=== PATIENT | female | born 1995 | race Caucasian/White ===

== ENCOUNTER 2019-07-17 17:40 | Inpatient (IN) | payer BC, MEDICAID ==
[~2019-07-17] VITALS: Ht 152.4 cm; Wt 64.4 kg
[2019-07-17 17:47] VITALS: BP 129/82
--- NOTE | 2019-07-17 18:16 | NUR ---
Pt taken to bed 12.
--- NOTE | 2019-07-17 18:37 | NUR ---
PT PRESENTS TO ED FRO EVALUATION OF ABDOMINAL PAIN X 2 DAYS. STATED PAIN WHEN URUNATES. PT AAO X4, GCS 15, AMBULATORY WITH STEADY GAIT. RESPIRATIONS EVEN AND UNLABORED, BL LUNG CLEAR. SKIN WARM/PINK/DRY, +PMSC. ABDOMEN SOFT, NON DISTENDED, ATCIVE BOWEL SOUND X4. VS WNL. ED PROVIDER MADE AWARE OF PT STATUS, WILL CONTINUE TO MONITOR
--- NOTE | 2019-07-17 19:15 | NUR ---
RECEIVED REPORT FROM JACKIE MIX. ASSUMED CARE AT THIS TIME.
[2019-07-17 19:49] LABS: APPEARANCE,URINE CLEAR (CLEAR); BILIRUBIN,URINE NEGATIVE (NEGATIVE); BLOOD, URINE 2+ (NEGATIVE); COLOR,URINE YELLOW (YELLOW); LEUKOCYTE ESTERASE ,URINE NEGATIVE (NEGATIVE); NITRITE, URINE NEGATIVE (NEGATIVE); PH,URINE 7.5 (5.0-9.0); UGLUCOSE NEGATIVE (NEGATIVE)
[2019-07-17] MEDS ORDERED: cefTRIAXone 1,000 MG in LIDOCAINE MPF 1% 2.1 ML IM ONE (20:00)
[2019-07-17 20:01] LABS: RBC,URINE NONE SEEN /HPF (0-5); WBC,URINE NONE SEEN /HPF (0-5)
--- NOTE | 2019-07-17 20:15 | NUR ---
PT C/O 01/21 PAIN. AARON MAYBERRY NOTIFIED.
[2019-07-17] MEDS ORDERED: MORPHINE SULFATE 4 MG/ML SYR IVP ONE (20:40)
[2019-07-17] MEDS ORDERED: NACL 0.9% 1,000 ML IV ONE (20:40)
[2019-07-17] MEDS ORDERED: PIPERACILLIN/TAZOBACTAM 2.25 GM in DEXTROSE 5% 50 ML IV ONE (20:40)
[2019-07-17 20:56] LABS: BASOPHILS % (AUTO) 0.2 % (0.0-2.0); EOSINOPHILS # (AUTO) 0.1 K/uL (0-0.4); EOSINOPHILS % (AUTO) 0.8 % (0.0-4.0); HEMATOCRIT 40.4 % (36-48); HEMOGLOBIN 13.1 g/dL (12.0-16.0); LYMPHOCYTES # (AUTO) 1.6 K/uL (2.5-16.5); LYMPHOCYTES % (AUTO) 13.7 % (20.5-51.1); MEAN CORPUSCULAR HEMOGLOBIN 31 pg (27-31); MEAN CORPUSCULAR HGB CONC 32 g/dL (33-37); MEAN CORPUSCULAR VOLUME 95.9 fL (80-94); MONOCYTES % (AUTO) 8.1 % (1.7-9.3); NEUTROPHILS # (AUTO) 9.1 K/uL (1.8-7.7); NEUTROPHILS % (AUTO) 77.2 % (42.2-75.2); PLATELET COUNT (AUTO) 239 K/uL (140-450); RED BLOOD CELL COUNT(AUTO) 4.21 MIL/uL (4.20-5.40); RED CELL DISTRIBUTION WIDTH 13.9 % (11.6-13.7); WHITE BLOOD COUNT (AUTO) 11.8 K/uL (4.8-10.8)
[2019-07-17] MEDS ORDERED: PIPERACILLIN/TAZOBACTAM 2.25 GM VIAL IV ONE (21:00)
[2019-07-17 21:25] LABS: ALBUMIN 3.7 g/dL (3.4-5.0); POTASSIUM 3.9 mmol/L (3.5-5.1); TOTAL BILIRUBIN 0.6 mg/dL (0.0-1.0)
--- NOTE | 2019-07-17 21:30 | NUR ---
PT REPORTS DECREASED PAIN AT THIS TIME.
[2019-07-17 21:38] LABS: CREATININE 0.9 mg/dL (0.6-1.3)
[2019-07-17 21:41] LABS: ANION GAP 11.9 (8-16)
[2019-07-17 22:29] VITALS: BP 120/68
--- NOTE | 2019-07-17 22:29 | NUR ---
RECEIVED FROM ED VIA WHEELCHAIR, PT AMBULATED TO THE BED, STEADY IN GAIT. AAO X 4. WITH IV ON THE RIGHT AC G 20, INTACT. MOTHER AT BEDSIDE. MRSA SWAB TAKEN. HX AND PHYSICAL DONE. SKIN INTACT. WILL MONITOR PT.
[2019-07-17] MEDS ORDERED: ONDANSETRON 4 MG/2 ML VIAL IVP PRN (23:45)
--- NOTE | 2019-07-18 | NUR ---
called er talked to shaye informed her to inform the one who admitted to come and sign the personnel belonging list. it was not signed and personally informed her during endorsement
--- NOTE | 2019-07-18 | NUR ---
DR. CLARK CALLED THRU [facility] AND TAKLED TO HIM HE WANTS TO DO THE SURGERY AT 0700 AM. [employer]
[2019-07-18 00:13] LABS: PROTHROMBIN TIME 9.6 secs (10.8-13.4)
--- NOTE | 2019-07-18 00:14 | NUR ---
INFORMED MOTHER VERNECE, THAT DR. GÓMEZ WILL BE HERE AND WILL DO THE OPERATION 0700AM AND WILL BE THERE BEFORE THAT TIME
[2019-07-18] MEDS ORDERED: PIPERACILLIN/TAZOBACTAM 3.375 GM VIAL IV ONE ×2 (00:38→04:52)
[2019-07-18] MEDS: DEXT 5% /NACL 0.9% 1,000 ML IV SCH ×2 (00:53→09:31)
[2019-07-18] MEDS: MORPHINE SULFATE 2 MG/ML SYR IVP PRN ×3 (00:55→22:15)
[2019-07-18] MEDS ORDERED: PIPERACILLIN/TAZOBACTAM 3.375 GM in DEXTROSE 5% 50 ML IV SCH (01:00)
[2019-07-18 04:00] VITALS: BP 124/56
[2019-07-18 05:10] LABS: ANION GAP 11.3 (8-16); CARBON DIOXIDE 27.4 mmol/L (21-32); CREATININE 0.9 mg/dL (0.6-1.3); POTASSIUM 3.7 mmol/L (3.5-5.1)
[2019-07-18 05:28] LABS: BASOPHILS % (AUTO) 0.3 % (0.0-2.0); EOSINOPHILS % (AUTO) 0.4 % (0.0-4.0); HEMATOCRIT 38.1 % (36-48); HEMOGLOBIN 12.5 g/dL (12.0-16.0); LYMPHOCYTES # (AUTO) 0.8 K/uL (2.5-16.5); LYMPHOCYTES % (AUTO) 6.9 % (20.5-51.1); MEAN CORPUSCULAR HEMOGLOBIN 31 pg (27-31); MEAN CORPUSCULAR HGB CONC 33 g/dL (33-37); MEAN CORPUSCULAR VOLUME 95.4 fL (80-94); MONOCYTES # (AUTO) 0.9 K/uL (0.8-1.0); MONOCYTES % (AUTO) 7.7 % (1.7-9.3); NEUTROPHILS # (AUTO) 9.8 K/uL (1.8-7.7); PLATELET COUNT (AUTO) 217 K/uL (140-450); RED CELL DISTRIBUTION WIDTH 13.8 % (11.6-13.7); WHITE BLOOD COUNT (AUTO) 11.6 K/uL (4.8-10.8)
[2019-07-18 05:36] LABS: NEUTROPHILS % (AUTO) 84.7 % (42.2-75.2)
[2019-07-18] MEDS ORDERED: PIPER/TAZO 3.375GM/D5W PREMIX 50 ML IV SCH (06:00)
--- NOTE | 2019-07-18 06:30 | NUR ---
DR. GÓMEZ AT BEDSIDE. EXPLAINED PROCEDURE TO PATIENT AND MOM AT BEDSIDE. CONSENT SIGNED BY PATIENT. SIGNED CONSENT WELL
--- NOTE | 2019-07-18 06:49 | NUR ---
WHEELED FROM THE TELE UNIT TO OR VIA GURNEY BY OR NURSE.ENDORSED.
[2019-07-18] MEDS ORDERED: BUPIVACAINE-MPF/EPI 0.25% 30 ML VIAL INJ ONE (06:57)
[2019-07-18] MEDS ORDERED: KETOROLAC 30 MG/ML VIAL ONE (07:09)
[2019-07-18] MEDS ORDERED: ONDANSETRON 4 MG/2 ML VIAL ONE (07:09)
[2019-07-18] MEDS ORDERED: DEXAMETHASONE 4 MG/ML VIAL ONE (07:09)
[2019-07-18] MEDS ORDERED: fentaNYL 0.05 MG/ML VIAL ONE (07:14)
[2019-07-18] MEDS ORDERED: HYDROmorphone PFS 2 MG/ML SYR ONE (07:14)
--- NOTE | 2019-07-18 07:15 | NUR ---
RECEIVED BEDSIDE REPORT FROM NIGHTSHIFT NURSE. PT RESTING IN BED UPON ARRIVAL. ABLE TO MAKE NEEDS KNOWN. RESPIRATIONS EVEN AND UNLABORED WITH NO SOB OR RESPIRATORY DISTRESS. SKIN WARM AND DRY TO TOUCH. IV SITE IN LEFT AC 20G SALINE LOCK IS CLEAN, DRY, AND INTACT. SAFETY MEASURES IN PLACE. WILL CONTINUE TO MONITOR
[2019-07-18 08:00] VITALS: BP 96/58
--- NOTE | 2019-07-18 08:01 | NUR ---
GAVE REPORT TO OR NURSE. CONSENT IS SIGNED AND PT IS READY FOR OR. PT RESTING IN BED. SKIN WARM AND DRY TO TOUCH. ABLE TO MAKE NEEDS KNOWN. RESPIRATIONS EVEN AND UNLABORED WITH NO SOB OR RESPIRATORY DISTRESS. SAFETY MEASURES IN PLACE. WILL CONTINUE TO MONITOR.
--- NOTE | 2019-07-18 08:46 | NUR ---
PATIENT HAS BEEN SCREENED AND CATEGORIZED LOW NUTRITION RISK. PATIENT WILL BE SEEN WITHIN 7 DAYS OF ADMISSION. 07/24/[address]
--- NOTE | 2019-07-18 09:10 | NUR ---
PT CAME BACK FROM OR. RECEIVED REPORT FROM OR NURSE. PT RESTING IN BED. ABLE TO MAKE NEEDS KNOWN. RESPIRATIONS EVEN AND UNLABORED WITH NO SOB OR RESPIRATORY DISTRESS. SKIN WARM AND DRY TO TOUCH. SAFETY MEASURES IN PLACE. WILL CONTINUE TO MONITOR.
--- NOTE | 2019-07-18 11:51 | NUR ---
DC [age] YRS OLD FEMALE PATIENT WAS ADMITTED FROM HOME WITH A DX OF ACUTE APPENDICITIS . PT HAS NO MEDICAL HISTORY. CT OF ABD SHOWED APPENDICITIS. THE PT WAS EVALUATED BY SURGERY DR GÓMEZ AND HAS SURGERY TODAY .DR GÓMEZ PERFORMED LAP APPY WITH NO COMPLICATIONS. PLAN TO START ON DIET AND TO BE ADVANCED TOLERATED AND WILL BE MONITORED ANOTHER DAY AND MORE LIKELY CAN BE DISCHARGED HOME ON 07/19/19 . CM TO FOLLOW
[2019-07-18 12:00] VITALS: BP 98/64
--- NOTE | 2019-07-18 12:20 | NUR ---
ADMINISTERED MEDICATION PRESCRIBED PER MD ORDER. PT TOLERATED WELL. MEDICATION EDUCATION PERFORMED. PT VERBALIZED UNDERSTANDING. SAFETY MEASURES IN PLACE. WILL CONTINUE TO MONITOR
[2019-07-18] MEDS: PIPERACILLIN/TAZOBACTAM 3.375 GM in DEXTROSE 5% 50 ML IV SCH ×2 (12:33→18:01)
--- NOTE | 2019-07-18 14:15 | NUR ---
HOURLY ROUNDING. PT RESTING IN BED WITH FAMILY AT BEDSIDE. ABLE TO MAKE NEEDS KNOWN. RESPIRATIONS EVEN AND UNLABORED WITH NO SOB OR RESPIRATORY DISTRESS. SKIN WARM AND DRY TO TOUCH. SAFETY MEASURES IN PLACE. WILL CONTINUE TO MONITOR.
[2019-07-18 16:00] VITALS: BP 96/58
--- NOTE | 2019-07-18 16:08 | NUR ---
PT ASLEEP IN BED. RESPONSIVE TO VERBAL AND TACTILE STIMULI. ABLE TO MAKE NEEDS KNOWN. RESPIRATIONS EVEN AND UNLABORED WITH NO SOB OR RESPIRATORY DISTRESS. SKIN WARM AND DRY TO TOUCH. SAFETY MEASURES IN PLACE. WILL CONTINUE TO MONITOR.
[2019-07-18] MEDS: ACETAMINOPHEN 325 MG TAB PO PRN (18:33)
--- NOTE | 2019-07-18 18:33 | NUR ---
PT CALLED AND COMPLAINED OF PAIN. PRN PAIN MEDICATION ADMINISTERED PRESCRIBED PER MD ORDER. PT TOLERATED WELL. MEDICATION EDUCATION PERFORMED. PT VERBALIZED UNDERSTANDING AND COULD TEACH BACK. SAFETY MEASURES IN PLACE. WILL CONTINUE TO MONITOR
--- NOTE | 2019-07-18 19:20 | NUR ---
ENDORSED TO NIGHTSHIFT NURSE. PT RESTING IN BED UPON ARRIVAL. ABLE TO MAKE NEEDS KNOWN. RESPIRATIONS EVEN AND UNLABORED WITH NO SOB OR RESPIRATORY DISTRESS. SKIN WARM AND DRY TO TOUCH. SAFETY MEASURES IN PLACE. PT IS STABLE.
--- NOTE | 2019-07-18 19:25 | NUR ---
RECEIVED PATIENT FROM AM NURSE IN STABLE CONDITION. MED SURG PATIENT. A/O X4, ABLE TO MAKE NEEDS KNOWN. RESPIRATIONS EVEN, UNLABORED. SKIN WARM, DRY TO TOUCH. IV SITE TO LEFT AC 20G INTACT AND PATENT. IV FLUIDS INFUSING WELL. NO C/O PAIN. NO S/SX ACUTE DISTRESS NOTED. ABDOMEN SOFT, NONDISTENDED. 3 INCISION SITES NOTED, 2 RIGOBERTO UNDER UMBILICUS. SITES ARE CLEAN/DRY WITH NO S/SX REDNESS. SCDS IN PLACE. BED IN LOWEST POSITION. SIDE RAILS UP X2. CALL LIGHT WITHIN REACH. WILL CONTINUE TO MONITOR.
--- NOTE | 2019-07-18 20:30 | NUR ---
SCD ON BLE APPLIED. INSTRUCTED TO CALL IF NEED TO GET UP TO BATHROOM .
--- NOTE | 2019-07-18 22:15 | NUR ---
PT C/O SEVERE PAIN. MEDICATED ORDERED. WILL CONTINUE TO MONITOR. INSTRUCTED TO CALL EARLY NEXT TIME BEFORE PAIN GET WORST. VERBALIZED UNDERSTANDING.
[2019-07-18] MEDS ORDERED: INFLUENZA VACCINE QUAD 0.5 ML SYR IMVAC PRN (23:50)
[2019-07-19] VITALS: BP 117/76
[2019-07-19] MEDS: PIPERACILLIN/TAZOBACTAM 3.375 GM in DEXTROSE 5% 50 ML IV SCH ×3 (00:12→12:16)
[2019-07-19] MEDS: DEXT 5% /NACL 0.9% 1,000 ML IV SCH (00:46)
--- NOTE | 2019-07-19 01:00 | NUR ---
MADE ROUNDS. SLEEPING WELL. NO S/S OF ANY PAIN NOTED.
--- NOTE | 2019-07-19 03:00 | NUR ---
SLEEPING AT THIS TIME . NO S/S OF ANY DISCOMFORT/PAIN NOTED. IVF INFUSING WELL.
[2019-07-19] MEDS: MORPHINE SULFATE 2 MG/ML SYR IVP PRN ×2 (05:10→10:43)
--- NOTE | 2019-07-19 05:10 | NUR ---
PATIENT C/O ACHING ABDOMINAL PAIN 01/21. MEDICATED ORDERED. WILL CONTINUE TO MONITOR.
--- NOTE | 2019-07-19 06:10 | NUR ---
REASSESSED PAIN LEVEL AT 2/10, TOLERABLE PAIN LEVEL. NO S/SX ACUTE DISTRESS NOTED. MOTHER AT BEDSIDE. CALL LIGHT WITHIN REACH. WILL CONTINUE TO MONITOR.
[2019-07-19 06:32] LABS: BASOPHILS % (AUTO) 0.2 % (0.0-2.0); EOSINOPHILS # (AUTO) 0.1 K/uL (0-0.4); EOSINOPHILS % (AUTO) 0.6 % (0.0-4.0); HEMATOCRIT 33.3 % (36-48); HEMOGLOBIN 11.1 g/dL (12.0-16.0); LYMPHOCYTES # (AUTO) 1.2 K/uL (2.5-16.5); LYMPHOCYTES % (AUTO) 13.5 % (20.5-51.1); MEAN CORPUSCULAR HEMOGLOBIN 32 pg (27-31); MEAN CORPUSCULAR HGB CONC 33 g/dL (33-37); MEAN CORPUSCULAR VOLUME 95.9 fL (80-94); MONOCYTES # (AUTO) 0.9 K/uL (0.8-1.0); MONOCYTES % (AUTO) 9.5 % (1.7-9.3); NEUTROPHILS % (AUTO) 76.2 % (42.2-75.2); PLATELET COUNT (AUTO) 222 K/uL (140-450); RED BLOOD CELL COUNT(AUTO) 3.47 MIL/uL (4.20-5.40); RED CELL DISTRIBUTION WIDTH 13.7 % (11.6-13.7); WHITE BLOOD COUNT (AUTO) 9.1 K/uL (4.8-10.8)
--- NOTE | 2019-07-19 07:19 | NUR ---
ENDORSED PATIENT TO AM SHIFT NURSE IN STABLE CONDITION.
--- NOTE | 2019-07-19 07:20 | NUR ---
ENDORSED PATIENT TO AM SHIFT NURSE IN STABLE CONDITION.
--- NOTE | 2019-07-19 07:25 | NUR ---
RECEIVED BEDSIDE REPORT FROM NIGHTSHIFT NURSE. PT ASLEEP IN BED UPON ARRIVAL. RESPONSIVE TO VERBAL AND TACTILE STIMULI. SKIN WARM AND DRY TO TOUCH. RESPIRATIONS EVEN AND UNLABORED WITH NO SOB OR RESPIRATORY DISTRESS. IV SITE IN RIGHT FA 22G IS CLEAN, DRY, AND INTACT. SAFETY MEASURES IN PLACE. WILL CONTINUE TO MONITOR.
[2019-07-19 08:00] VITALS: BP 103/65
[2019-07-19] MEDS: ACETAMINOPHEN 325 MG TAB PO PRN (08:00)
--- NOTE | 2019-07-19 09:35 | NUR ---
PT IS AWARE OF DISCHARGE TODAY. PT WANTS TO LEAVE AFTER LUNCH. PT RESTING IN BED WITH FAMILY AT BEDSIDE. RESPONSIVE TO VERBAL AND TACTILE STIMULI. SKIN WARM AND DRY TO TOUCH. RESPIRATIONS EVEN AND UNLABORED WITH NO SOB OR RESPIRATORY DISTRESS. SAFETY MEASURES IN PLACE. WILL CONTINUE TO MONITOR.
--- NOTE | 2019-07-19 10:43 | NUR ---
PT CALLED AND COMPLAINED OF PAIN. PRN PAIN MEDICATION ADMINISTERED PRESCRIBED PER MD ORDER. PT TOLERATED WELL. MEDICATION EDUCATION PERFORMED. PT VERBALIZED UNDERSTANDING. SAFETY MEASURES IN PLACE
--- NOTE | 2019-07-19 12:04 | NUR ---
PT RESTING IN BED WITH FAMILY AT BEDSIDE. RESPONSIVE TO VERBAL AND TACTILE STIMULI. SKIN WARM AND DRY TO TOUCH. RESPIRATIONS EVEN AND UNLABORED WITH NO SOB OR RESPIRATORY DISTRESS. SAFETY MEASURES IN PLACE. WILL CONTINUE TO MONITOR.
[2019-07-19 12:46] VITALS: BP 103/65
--- NOTE | 2019-07-19 13:56 | NUR ---
PT RESTING IN BED WITH FAMILY AT BEDSIDE. RESPONSIVE TO VERBAL AND TACTILE STIMULI. SKIN WARM AND DRY TO TOUCH. RESPIRATIONS EVEN AND UNLABORED WITH NO SOB OR RESPIRATORY DISTRESS. WENT OVER DC PACKET WITH PT. PT SIGNED APPROPRIATE FORMS. INSTRUCTED PT TO VISIT ED FOR ANY SIGNS OF DISTRESS. ID BAND AND INTACT IV CANNULA REMOVED. PT REFUSED FLU VACCINE. PT GATHERED ALL OF HER BELONGINGS AND CHANGED INTO HER CLOTHES. PRESCRIPTION GIVEN TO PT. PT WHEELED OUT TO PRIVATE VEHICLE TO GO HOME. PT IS STABLE
[2019-07-21 07:07] LABS: CHLAMYDIA TRACHOMATIS AMP DNA Negative (Negative)
== END 2019-07-19 13:55 | disposition home or self-care (01) | DRG 343 ==
LOC: MED 17:40 → MTU 22:02
PROVIDERS: ADMIT Internal Medicine; ATTEND Internal Medicine
PROC: 0DTJ4ZZ Resection of Appendix, Percutaneous Endoscopic Approach (ICD-10-PCS; principal; 2019-07-18 07:00)
DX: K35.80 Unspecified acute appendicitis (principal)
CPT/HCPCS: 36415; 80048; 80053; 81001; 81025; 82374; 83605; 85025; 85610; 85730; 87040; 87081; 87491; 96365; 96375; 99285; J1100; J1170; J1885; J2270; J2405; J2543; J3010; J3490; J7030; J7042; J7060